=== PATIENT | female | born 1975 | race Caucasian/White ===

== ENCOUNTER → 2024-02-06 | Outpatient (CLI) | payer BC ==
[2024-02-06 21:39] LABS: Appearance,BF Cloudy; Color,BF Yellow; Nucleated Cells, Body Fluid 24000 /uL; RBC, Body Fluid 6300 /uL
[2024-02-06 21:40] LABS: Mononuclear WBC,Body Fluid 10 %; Polynuclear WBC,Body Fluid 90 %; Total Cells Counted,Body Fluid 100
[2024-02-07 04:23] LABS: Synovial Fld Crystals None Seen (None Seen)
== END | disposition home or self-care (01) ==
LOC: LABWHC1 14:24
PROVIDERS: ATTEND Orthopaedic Surgery
DX: M25.461 Effusion, right knee (principal)
CPT/HCPCS: 87070; 87075; 87205; 89050; 89060

== ENCOUNTER → 2024-02-15 | Outpatient (CLI) | payer BC ==
--- NOTE | 2024-02-16 08:10 | US ---
EXAMINATION TYPE: US venous doppler duplex LE RT DATE OF EXAM: 02/15/2024 2:16 PM COMPARISON: NONE CLINICAL INDICATION: Female, 48 years old with history of [id number] PAIN IN RT KNEE; Right knee pain , TECHNIQUE: The lower extremity deep venous system is examined utilizing real time linear array sonog edith with graded compression, color doppler sonography, and spectral doppler. SIDE PERFORMED: Right FINDINGS: VESSELS IMAGED: Common Femoral Vein Deep Femoral Vein Greater Saphenous Vein * Femoral Vein Popliteal Vein Small Saphenous Vein * Proximal Calf Veins (* superficial vessels) Bakers cyst seen right leg extending from popliteal area to upper calf measuring 6.7 x 2.4 x 3.6 cm. Right Leg: Negative for DVT, Color Doppler imaging shows patency of the vessels. Spectral waveforms are within normal limits. IMPRESSION: No ultrasound evidence for deep venous thrombosis. [facility], , 02/16/2024 8:08 AM
== END | disposition home or self-care (01) ==
LOC: RADUSWWP 13:25
PROVIDERS: ATTEND Orthopaedic Surgery
DX: I80.9 Phlebitis and thrombophlebitis of unspecified site (principal); M17.11 Unilateral primary osteoarthritis, right knee; M25.561 Pain in right knee

== ENCOUNTER → 2024-04-12 | Outpatient (CLI) | payer BC ==
--- NOTE | 2024-04-12 13:01 | CT ---
EXAMINATION TYPE: CT right knee - [facility] Protocol DATE OF EXAM: 04/12/2024 COMPARISON: NONE HISTORY: Pre-surgical for knee replacement. CT DLP: 934 mGycm. Automated Exposure Control for Dose Reduction was Utilized. TECHNIQUE: CT scan of the right lower extremity is performed without contrast, axial images are obtai dann, coronal reformatted images are also reviewed. FINDINGS: Exam is for surgical planning and not for diagnostic purposes. Images of the pelvis and bi lateral hips show a few sigmoid colonic diverticula otherwise are unremarkable. There is severe media l tibiofemoral compartment narrowing in the right knee. There is less prominent degenerative change l aterally. Images of the bilateral ankles and feet show no significant incidental abnormality. IMPRESSION: As above. [facility], , 04/12/2024 12:58 PM
== END | disposition home or self-care (01) ==
LOC: RADCTMAIN 12:14
PROVIDERS: ATTEND Orthopaedic Surgery
DX: Z01.818 Encounter for other preprocedural examination (principal); M17.11 Unilateral primary osteoarthritis, right knee

== ENCOUNTER 2024-05-11 05:33 | Day surgery (SDC) | payer BC ==
[2024-05-11] MEDS ORDERED: TRANEXAMIC 1,000 MG/100ML-NACL 1,000 MG in SALINE 1 100ML.BAG IV PRN (06:00)
[2024-05-11] MEDS ORDERED: TRANEXAMIC 1,000 MG/100ML-NACL 1,000 MG in SALINE 1 100ML.BAG IVPB PRN (06:00)
[2024-05-11] MEDS: IV FLUID CONTINUATION 1,000 ML IV ONE (06:20)
[2024-05-11] MEDS: LACTATED RINGERS 1,000 ML IV SCH (06:20)
[2024-05-11] MEDS: LIDOCAINE 1% (10MG/ML) FOR IV START INTRADERMA STA (06:20)
[2024-05-11 06:32] LABS: Glucose,Whole Blood 100 mg/dL (70-110)
[2024-05-11 06:34] LABS: Basophils # (A) 0.1 k/uL (0-0.2); Basophils % (A) 2 %; Eosinophils # (A) 0.4 k/uL (0-0.7); Eosinophils % (A) 7 %; Lymphocytes # (A) 1.5 k/uL (1.0-4.8); Lymphocytes % (A) 24 %; MCH 29.7 pg (25.0-35.0); MCHC 33.4 g/dL (31.0-37.0); MCV 89.1 fL (80.0-100.0); Mean Platelet Volume 6.8; Monocytes # (A) 0.4 k/uL (0-1.0); Monocytes % (A) 6 %; Neutrophils # (A) 3.5 k/uL (1.3-7.7); Neutrophils % (A) 59 %; Platelet Count 287 k/uL (150-450); RBC 4.38 m/uL (3.80-5.40); RDW 12.7 % (11.5-15.5); WBC 5.9 k/uL (3.8-10.6)
[2024-05-11] MEDS: oxyCODONE ER 10 MG TAB.ER.12H PO PRN (06:38)
[2024-05-11] MEDS: ACETAMINOPHEN TAB 500 MG TAB PO PRN (06:38)
[2024-05-11] MEDS: DOCUSATE 100 MG CAP PO PRN (06:38)
[2024-05-11] MEDS: MIDAZOLAM 2 MG/2 ML VIAL IV PRN (06:41)
[2024-05-11] MEDS: FAMOTIDINE 20 MG/2 ML VIAL IVP PRN (06:43)
[2024-05-11] MEDS: DEXAMETHASONE SOD PHOSPHATE 10 MG/ML 1 ML VIAL IV PRN (06:43)
[2024-05-11] MEDS: KETOROLAC 15 MG/ML 1 ML VIAL IVP PRN (06:43)
[2024-05-11] MEDS: ONDANSETRON 4 MG/2 ML VIAL IVP PRN ×2 (06:43→11:12)
[2024-05-11] MEDS: SCOPOLAMINE 1 MG/72 HR PATCH TRANSDERM STA (06:44)
[2024-05-11 06:45] LABS: INR 0.9 (<1.2); Partial Thromboplastin Time 24.6 sec (22.0-30.0); Prothrombin Time 10.1 sec (10.0-12.5)
[2024-05-11] MEDS ORDERED: ROPIVACAINE 5 MG/ML 30 ML VIAL ONE (06:58)
[2024-05-11] MEDS ORDERED: LIDOCAINE 1% INJ 10MG/ML (20 ML MDV) ONE (06:58)
[2024-05-11] MEDS ORDERED: NEOSTIGMINE 1 MG/ML 10 ML VIAL ONE (06:58)
[2024-05-11] MEDS ORDERED: ROCURONIUM 10 MG/ML (5 ML VIAL) IV ONE (06:58)
[2024-05-11] MEDS ORDERED: GLYCOPYRROLATE 0.2 MG/ML 2 ML VIAL ONE (06:58)
[2024-05-11] MEDS ORDERED: PROPOFOL 10 MG/ML 20 ML VIAL IV ONE (06:58)
[2024-05-11] MEDS ORDERED: DEXAMETHASONE SOD PHOSPHATE 4 MG/ML 1 ML VIAL ONE (06:58)
[2024-05-11] MEDS ORDERED: HYDROmorphone (PF) 1 MG/ML ONE (06:58)
[2024-05-11] MEDS ORDERED: diphenhydrAMINE 50 MG/ML 1 ML VIAL ONE (06:58)
[2024-05-11] MEDS ORDERED: TRANEXAMIC 1,000 MG/100ML-NACL PREMIX BAG ONE (06:58)
[2024-05-11] MEDS ORDERED: MIDAZOLAM 2 MG/2 ML VIAL ONE (06:58)
[2024-05-11] MEDS ORDERED: fentaNYL (PF) 50 MCG/ML 2 ML AMP ONE (06:58)
[2024-05-11] MEDS ORDERED: PHENYLEPHRINE-0.9% NACL SYG 1,000 MCG/10 ML SYRINGE ONE (06:58)
[2024-05-11] MEDS ORDERED: SUCCINYLCHOLINE CHLORIDE 200 MG/10 ML VIAL IV ONE (06:58)
[2024-05-11] MEDS ORDERED: HYDROmorphone 0.5 MG/0.5 ML SYRINGE IVP PRN ×3 (07:00→08:43)
[2024-05-11] MEDS: ROPIVACAINE/EPI/CLONIDINE/KET 50 ML SYRINGE MISCELLANE PRN (07:24)
--- NOTE | 2024-05-11 08:12 | P.ANPRN ---
Procedure Note - Anesthesia - Nerve Block Performed Right iPack Single Time Out Performed: Yes Date of Procedure: 05/11/24 Procedure Start Time: 06:30 Procedure Stop Time: 06:35 Location of Patient: PreOp Indication: Acute Post-Operative Pain, Analgesia, Requested by Surgeon Sedation Type: Sedate with meaningful contact maintained Preparation: Sterile Prep Position: Left Lateral Catheter: None Needle Types: Pajunk Needle Gauge: 21 Ultrasound used to visualize needle placement: Yes Ultrasound used to observe medication spread: Yes Injectate: 0.5% Ropivacaine (see comment for volume) (Ropiv 20ml+[id number] (Resident)) Blood Aspirated: No Pain Paresthesia on Injection Noted: No Resistance on Injection: Normal Image Stored and Saved: Yes Events: Uneventful and Well Tolerated
--- NOTE | 2024-05-11 08:14 | P.ANPRN ---
Procedure Note - Anesthesia - Nerve Block Performed Right Adductor Canal Single Time Out Performed: Yes Date of Procedure: 05/11/24 Procedure Start Time: 06:35 Procedure Stop Time: 06:40 Location of Patient: PreOp Indication: Acute Post-Operative Pain, Analgesia, Requested by Surgeon Sedation Type: Sedate with meaningful contact maintained Preparation: Sterile Prep Position: Supine Catheter: None Needle Types: Pajunk Needle Gauge: 21 Ultrasound used to visualize needle placement: Yes Ultrasound used to observe medication spread: Yes Injectate: 0.5% Ropivacaine (see comment for volume) (Ropiv 20ml+[id number] (Resident)) Blood Aspirated: No Pain Paresthesia on Injection Noted: No Resistance on Injection: Normal Image Stored and Saved: Yes Events: Uneventful and Well Tolerated
[2024-05-11] MEDS: LACTATED RINGERS 1,000 ML IV ONE (08:20)
[2024-05-11] MEDS ORDERED: MAGNESIUM HYDROXIDE 2,400 MG/30 ML CUP PO PRN (08:43)
[2024-05-11] MEDS ORDERED: HYDROmorphone 1 MG/ML 1 ML SYRINGE IVP PRN (08:43)
[2024-05-11] MEDS ORDERED: hydrOXYzine pamoate 25 MG CAP PO PRN (08:43)
[2024-05-11] MEDS ORDERED: diazePAM 5 MG TAB PO PRN ×2 (08:43)
[2024-05-11] MEDS ORDERED: HYDROcodone/APAP 10-325MG 1 EACH TAB PO PRN (08:43)
[2024-05-11] MEDS ORDERED: NA PHOS,M-B/NA PHOS,DI-BA 133 ML ENEMA RECTAL PRN (08:43)
[2024-05-11] MEDS ORDERED: bisacodyL 10 MG SUPP RECTAL PRN (08:43)
[2024-05-11] MEDS ORDERED: NALOXONE 0.4 MG/ML 1 ML VIAL IV PRN (08:43)
--- NOTE | 2024-05-11 08:43 | P.OP ---
Date of Procedure: 05/11/24 Preoperative Diagnosis: 1. Severe right knee osteoarthritis 2. BMI 32.8 3. Type 2 diabetes Postoperative Diagnosis: Same Procedure(s) Performed: 1. Right total knee arthroplasty 2. Computer assisted musculoskeletal navigation using CT/MRI images Implants: 1. [place] [employer] CR Femur Size #3 2. [place] [employer] [place] Tibial Base Size #3 3. [place] [employer] CS poly Size #3, 10 CS 4. [place] [employer] all poly patella, Size #29 Anesthesia: PENNY, regional Surgeon: Filemon [employer] Geography Teacher #1: Darshan De La Cruz Estimated Blood Loss (ml): 100 IV fluids (ml): 800 Pathology: none sent Condition: stable Disposition: PACU Indications for Procedure: I met with the patient preoperatively in the office setting and discussed treatment of their symptomatic knee arthritis. They failed a long course of nonsurgical treatment including multiple attempts at injections, activity modification, and NSAID pain medications. The patient reacted unfavorably to her last viscosupplementation injection. She was to the point where she wanted to proceed with surgery. We discussed both partial versus total knee replacement. We discussed the pros and cons of both. She was tentatively boarded for partial versus total with a final determination on how to proceed with both the preoperative CT scan and the appearance of her knee intraoperatively. I discussed the potential risks and complications at length and gave them ample time to ask questions. Risks discussed included: risks from anesthesia, superficial site surgical infection, acute and/or chronic periprosthetic joint infection, delayed wound healing, drainage, wound necrosis, instability, stiffness, stiffness requiring manipulation and/or revision surgery, damage to local blood vessels or nerves, aseptic loosening of the implants, extensor mechanism issues including disruption, patellar maltracking, avascular necrosis etc., continued or worsened knee pain, generalized dissatisfaction with surgical outcome, need for revision surgery, an inability to regain preinjury level of function, DVT, PE, other medical complications, and possibly loss of life or limb. The patient voiced their understanding that while these are the most common complications other less common complications are possible. They provided both their verbal and written consent to go forward with surgery. Operative Findings: The preoperative CT and her most recent weightbearing x-rays showed medial subluxation of the femur on the tibia. Intraoperatively there was complete cartilage loss in the medial compartment and partial full-thickness cartilage loss on the trochlea and on the lateral condyle. Based on the diffuse arthritis in her knee and medial subluxation of the femur on the tibia I elected to proceed with a total knee replacement as I had concerns about edge loading medially of a Uni compartmental implant and her diffuse arthritis throughout the knee continuing to cause symptoms. The patient was also found to have relatively poor bone quality so I elected to use cemented fixation rather than cementless implants. Description of Procedure: The patient was identified in preoperative holding and the correct operative extremity was verified and marked with a marker. I reviewed the consent form with the patient at length. All of their questions were answered. The patient was given a block by anesthesia. They were then brought back to the operating room. They were transferred onto the operating room table where a general anesthetic, preoperative antibiotics, and tranexamic acid were administered by anesthesia. A tourniquet was applied to the proximal aspect of the operative extremity. The contralateral extremity was padded under the heel and secured to the operating room table with a nonsterile blue towel and tape. The ipsilateral arm was carefully draped across the patient's chest and secured with a pillow and foam. A post was applied over the lateral aspect of the ipsilateral thigh and a bolster was placed under the ipsilateral foot. I verified that the operative extremity was stable and the knee was flexed to 90. The operative extremity was then placed in a leg [place], nonsterile drapes were applied, and the extremity was prepped and draped sterilely in the standard sterile fashion. Prior to starting surgery timeout was performed identifying the correct patient, operative extremity, and procedure. The leg was then elevated, exsanguinated with an Esmarch bandage, and the tourniquet was inflated. An anterior midline incision was made sharply with a scalpel. Once I had dissected deep to the superficial fascial layer medial and lateral flaps were elevated. A medial parapatellar arthrotomy was created. Upon opening the knee joint there were diffuse arthritic changes in all 3 compartments. The anterior horn of the medial meniscus were sharply released and a medial release was performed around the posterior medial corner of the knee to facilitate retractor placement. The fat pad was excised with electrocautery. The patella was found to be severely arthritic and a provisional cut was made with a sagittal saw to facilitate mobilization of the extensor mechanism during the procedure. Remnants of the ACL and PCL were then excised from the notch. 4 mm pins were then placed within the incision in the medial distal femur and proximal tibia. Arrays were applied to the pins and I verified they were completely tightened. The knee was then registered with the [employer] robot and manipulations in implant position were made to balance the knee and opitmize implant position. Using the Manuel robotic saw all cuts were made in accordance with our plan. After all bony fragments had been removed the cuts were verified with the planar probe. The tibia was then subluxed forward and sized. The knee was brought into flexion and a lamina retail operations specialist was placed to allow removal of the meniscal remnants both medially and laterally as well as posterior osteophytes. Local anesthetic was then infiltrated around the joint capsule. Trial implants were then placed within the knee. Range of motion and collateral ligament tension was then eval uated. Adjustments in implant size and position were then made accordingly. Once the knee was felt to be appropriately balanced the Manuel pins were removed. The patella was then recut, sized, and punched. A trial patellar button was then placed. With the trial components in place, the patella tracked midline. The femur was then drilled and the trial component removed. The trial tibial component was then appropriately rotated, pinned, and prepared for the keel. All trial components were then removed from the knee. The knee was thoroughly irrigated with pulsatile lavage. Cement was prepared via vacuum mixing in a bowl on the back table. I then hand pressurized cement into the femur and tibia and placed the implants beginning with the tibial base tray and poly liner, femoral component, and finally the patellar button. All extruded cement was removed including from the pin sites. Once the cement had hardened the knee was evaluated one final time with the final polyethylene liner in place. The knee had full extension and flexion and felt stable to varus and valgus stress throughout the arc of motion. The tourniquet was released and with the tourniquet down the patella tracked midline. All bleeders were controlled with electrocautery. The knee was then soaked for 3 minutes with a dilute Betadine soak. The knee was thoroughly irrigated using 3 L of sterile saline and p ulsatile lavage. A deep drain was placed. The extensor mechanism was then reapproximated using pop off Vicryl sutures followed by a running barbed suture. The knee was then closed in layers with a 0 strata fix for the deep fascial layer, 2-0 strata fix for the superficial subcutaneous layer and Monocryl and Steri-Strips for the skin. A sterile dressing and drain sponge were applied. I verified that all instrument, sponge, and sharp counts were correct. The patient was then transferred off the operating room table, extubated, and brought to recovery having tolerated the procedure well. Darshan De La Cruz PA-C was required as a skilled first assistant manager due to the complexity of surgery for patient positioning, draping, exposure, retraction, closure of wound and application of dressing. PLAN: The patient can weight-bear as tolerated on the operative extremity. DVT prophylaxis with aspirin 81 mg twice a day based on preoperative risk stratification. Follow-up in the office in 2 weeks for wound check and x-rays of the knee including an AP and lateral.
[2024-05-11] MEDS ORDERED: LACTATED RINGERS 1,000 ML IV SCH (08:45)
[2024-05-11] MEDS ORDERED: ASPIRIN 81 MG PO SCH (09:00)
[2024-05-11 09:07] VITALS: TEMP 97.8
--- NOTE | 2024-05-11 09:34 | XR ---
EXAMINATION TYPE: XR knee limited RT DATE OF EXAM: 05/11/2024 9:22 AM COMPARISON: None. CLINICAL INDICATION: Female, 48 years old with history of Evaluation for Postop abnormality and align ment, pain TECHNIQUE: 2 view(s) obtained. FINDINGS: Tibial femoral compartments in place. No acute fracture or dislocation evident. No significant joint effusion. Postsurgical soft tissue changes are present. IMPRESSION: 1. No acute fracture post right knee replacement. [facility], , 05/11/2024 9:31 AM
[2024-05-11 10:10] VITALS: RESP 16
[2024-05-11 11:32] VITALS: BP 106/66; PULSE 70
[2024-05-11] MEDS: HYDROcodone/APAP 5-325MG 1 EACH TAB PO PRN (11:46)
[2024-05-11] MEDS ORDERED: SENNOSIDES-DOCUSATE SODIUM 1 EACH TAB PO SCH (21:00)
== END 2024-05-11 12:21 | disposition home health service (06) ==
LOC: OR 05:33
PROVIDERS: ATTEND Orthopaedic Surgery
DX: M17.11 Unilateral primary osteoarthritis, right knee (principal); G89.18 Other acute postprocedural pain; E11.9 Type 2 diabetes mellitus without complications
CPT/HCPCS: 0055T; 27447; S2900; 64447; 64999; 85025; 85610; 85730